=== PATIENT | male | born 1990 | race Caucasian/White ===

== ENCOUNTER → 2017-10-27 | Day surgery (SDC) | payer BC ==
[2017-10-17 07:33] VITALS: Ht 188 cm; Wt 84.1 kg
[~2017-10-27] VITALS: Ht 188 cm; Wt 84.1 kg
[~2017-10-27] MED LIST: PROPOFOL IV EMULSION 10 MG/ML 20 ML VIAL IV ONE; SODIUM CHLORIDE 0.9% 500ML 500 ML IV ONE
--- NOTE | 2017-10-27 15:00 | Endo History and Physical ---
History & Physical Date of Service: Oct 27, 2017. Chief Complaint: Abdominal cramping/bloating; diarrhea Referring Physician: Diogenes Mcqueen History of Present Illness 27 yo CM who presents for colonoscopy secondary to abdominal cramping and diarrhea. Past Surgical History Hx Cardiac Surgery: No Hx Internal Defibrillator: No Hx Pacemaker: No Hx Abdominal Surgery: No Hx of Implantable Prosthesis: No Hx Post-Op Nausea and Vomiting: No Hx Cancer Surgery: No Hx Thoracic Surgery: Yes (BRONCHOSCOPY/LUNG SURGERY (AT AGE 5)BENIGN) Hx Orthopedic: No Hx Urinary Tract Surgery: No Family History None Social History Smoking Status: Never Smoker Hx Substance Use: No Hx Alcohol Use: Yes (OCCASIONALLY) Allergies Coded Allergies: No Known Allergies (Unverified , 10/17/17) Current Medications Reported Home Medications Medications Dose Route/Sig Max Daily Dose Days Date Category No Active Prescriptions or Reported Medications Rx Vital Signs Weight (Kilograms): 84.09 Height (Feet): 6 Height (Inches): 2 Date Time Temp Pulse Resp B/P (MAP) Pulse Ox O2 Delivery O2 Flow Rate FiO2 10/27/17 14:38 36.8 80 18 121/72 (88) 97 Room Air Physical Exam General Appearance: WD/WN, no apparent distress Respiratory/Chest: Auscultation: breath sounds normal Cardiovascular: Heart Auscultation: RRR Abdomen: Bowel Sounds: normal Inspection & Palpation: soft, non-distended, no tenderness, guarding & rebound Assessment and Plan Assessment: 27 yo CM who presents for colonoscopy secondary to abdominal cramping and diarrhea. Plan: Proceed with colonoscopy.
--- NOTE | 2017-10-27 15:27 | GI REPORT ---
Procedure Date: 10/27/2017 2:39 PM Procedure: Colonoscopy Indications: Chronic diarrhea Medicines: Monitored Anesthesia Care Complications: No immediate complications. Estimated Blood Loss: Estimated blood loss: none. Procedure: Pre-Anesthesia Assessment: - Prior to the procedure, a History and Physical was performed, and patient medications and allergies were reviewed. The patient's tolerance of previous anesthesia was also reviewed. The risks and benefits of the procedure and the sedation options and risks were discussed with the patient. All questions were answered, and informed consent was obtained. Prior Anticoagulants: The patient has taken no previous anticoagulant or antiplatelet agents. ASA Grade Assessment: I - A normal, healthy patient. After reviewing the risks and benefits, the patient was deemed in satisfactory condition to undergo the procedure. After I obtained informed consent, the scope was passed under direct vision. Throughout the procedure, the patient's blood pressure, pulse, and oxygen saturations were monitored continuously. The scope was introduced through the anus and advanced to the terminal ileum. The colonoscopy was performed without difficulty. The patient tolerated the procedure well. The quality of the bowel preparation was good. The terminal ileum, ileocecal valve, appendiceal orifice, and rectum were photographed. Findings: The perianal and digital rectal examinations were normal. The colon (entire examined portion) appeared normal. Several random biopsies were obtained with cold forceps for histology in the entire colon. Impression: - The entire examined colon is normal. - Several random biopsies were obtained in the entire colon. Recommendation: - Resume previous diet. - Continue present medications. - Repeat colonoscopy for surveillance based on pathology results. - Return to primary care physician as previously scheduled. Sanford May DO 10/27/2017 3:27:35 PM This report has been signed electronically. Note Initiated On: 10/27/2017 2:39 PM I attest to the content of the Intraoperative Record and orders documented therein, exceptions below
--- NOTE | 2017-10-27 15:30 | Discharge Instructions ---
Endoscopy Patient Instructions Date / Procedure(s) Performed Oct 27, 2017. Colonoscopy Allergy Information Coded Allergies: No Known Allergies (Unverified , 10/17/17) Discharge Date / Findings Oct 27, 2017. Random colon biopsies Medication Instructions OK to resume all medications today as prescribed Reported Home Medications Medications Dose Route/Sig Max Daily Dose Days Date Category No Active Prescriptions or Reported Medications Rx Provider Instructions Activity Restrictions - No exercising or heavy lifting for 24 hours. - Do not drink alcohol the day of the procedure. - Do not drive a car or operate machinery until the day after the procedure. - Do not make any important decisions or sign important papers in 24 hours after the procedure. Following Day: - Return to full activity which may include returning to work/school. Diet Start your diet with liquids and light foods (jello, soup, juice, toast). Then eat your usual diet if not nauseated. Treatment For Common After Affects For mild abdominal pain, bloating, or excessive gas: - Rest - Eat lightly - Lie on right side Follow-Up Information Follow-up with Diogenes Mcqueen as scheduled Anesthesia Information What You Should Know You have had a procedure that required some medicine to reduce anxiety and discomfort. This treatment is called moderate sedation. After receiving the treatment, you may be sleepy, but you will be able to breathe on your own. The effects of the treatment may last for several hours. Follow these instructions along with Activity/Diet recommendations noted above: * Do NOT do anything where dizziness or clumsiness would be dangerous. * Rest quietly at home today, then you can be up and about tomorrow. * Have a responsible person stay with you the rest of today. * You may have had an I.V. today. If so, you may take the dressing off later today. Recommendations Call your doctor if: * Trouble breathing * Continuous vomiting for more than 24 hours * Temperature above 101 degrees * Severe abdominal pain or bloating * Pain not relieved by pain medicine ordered * There is increased drainage or redness from any incision * A large amount of rectal bleeding greater than 2-3 tablespoons. (If you had a polyp/s removed or have hemorrhoids, a small amount of blood - from the rectum is to be expected.) * You have any unanswered questions or concerns. IN THE EVENT OF A SERIOUS EMERGENCY, GO TO THE NEAREST EMERGENCY ROOM Your discharge instructions were prepared by provider Sanford May. Patient Instructions Signature Page Isidro Skelton Patient (or Guardian) Signature/Date: I have read and understand the instructions given to me by my caregivers. Caregiver/RN/Doctor Signature/Date: The above-named patient and/or guardian has received patient instructions on this date. + Original Patient Signature Page (only) stays with chart. Please make copy for patient.
--- NOTE | 2017-10-27 15:54 | Anesthesiology Progress Note ---
Anesthesia Post Op Note Date & Time Oct 27, 2017 at 15:54 Vital Signs Pain Intensity: 1 Vital Signs Past 12 Hours Date Time Temp Pulse Resp B/P (MAP) Pulse Ox O2 Delivery O2 Flow Rate FiO2 10/27/17 15:40 63 18 106/71 (83) 99 Room Air 10/27/17 15:25 67 18 108/57 (74) 96 Room Air 10/27/17 14:38 36.8 80 18 121/72 (88) 97 Room Air Notes Mental Status: alert / awake / arousable, participated in evaluation Pt Amnestic to Procedure: Yes Nausea / Vomiting: adequately controlled Pain: adequately controlled Airway Patency, RR, SpO2: stable & adequate BP & HR: stable & adequate Hydration State: stable & adequate Anesthetic Complications: no major complications apparent
[2017-10-27 15:58] VITALS: BP 105/61; PULSE 63; O2SAT 99
== END | disposition home or self-care (01) ==
LOC: C.GI 14:18
PROVIDERS: ATTEND Internal Medicine
DX: R10.9 Unspecified abdominal pain (principal); R14.0 Abdominal distension (gaseous); R19.7 Diarrhea, unspecified

== ENCOUNTER 2020-04-10 18:48 | Inpatient (IN) ==
[2020-04-10] MEDS ORDERED: SODIUM CHLORIDE 0.9% 1000ML 2,000 ML IV ONE (20:52)
[2020-04-10 21:11] LABS: Basophils # (auto) 0.02 K/uL (0-0.2); Basophils % (auto) 0.3 %; Eosinophils # (auto) 0.12 K/uL (0-0.5); Eosinophils % (auto) 1.9 %; Hematocrit (blood only) 41.7 % (42-52); Hemoglobin 15.3 g/dL (14.0-18.0); Immature Granulocytes # (auto) 0.01 K/uL (0.00-0.02); Immature Granulocytes % (auto) 0.2 %; Lymphocytes # (auto) 2.21 K/uL (1.2-3.4); Lymphocytes % (auto) 34.2 %; Mean Corpuscular Hemoglobin 32.2 pg (25-34); Mean Corpuscular Hgb Conc 36.7 g/dL (32-36); Mean Corpuscular Volume 87.8 fL (80-100); Mean Platelet Volume 9.2 fL (7.4-10.4); Monocytes # (auto) 0.48 K/uL (0.11-0.59); Monocytes % (auto) 7.4 %; Neutrophils # (auto) 3.63 K/uL (1.4-6.5); Platelet Count 205 K/uL (130-400); RDW Coefficient of Variation 11.8 % (11.5-14.5); RDW Standard Deviation 37.7 fL (36.4-46.3); Red Blood Count 4.75 M/uL (4.7-6.1); White Blood Count 6.47 K/uL (4.8-10.8)
[2020-04-10 21:20] LABS: iSTAT Creatinine 0.9 mg/dl (0.6-1.3); iSTAT Hemoglobin 13.9 g/dl (14.0-18.0); iSTAT Ionized Calcium 1.22 mmol/l (1.12-1.32); iSTAT Potassium 3.9 mmol/L (3.3-5.0)
[2020-04-10 21:31] LABS: Albumin Level 3.9 gm/dl (3.4-5.0); BUN Creatinine Ratio 13.8 (10-20); Calcium 9.2 mg/dl (8.5-10.1); Creatinine Clr Calc Pharmacy 120.7 ml/min; Est GFR (African American) 110.6; Est GFR (Non-African American) 95.5; Potassium 3.9 mmol/L (3.5-5.1)
[2020-04-10 21:57] LABS: Albumin Globulin Ratio 1.3 (0.9-2); Bilirubin,Total 0.3 mg/dl (0.2-1); Globulin 3.1 gm/dl (2.5-4.0)
--- NOTE | 2020-04-10 23:03 | History & Physical Report ---
Date of Service April 10, 2020 Assessment & Plan (1) Lyme disease, acute: Patient was initially treated with 4 weeks of doxycycline beginning 02/10/2020. With persistent symptoms, he was given additional treatment course of doxycycline that was to begin today. Patient reports that repeat Lyme testing was ordered in the outpatient setting Testing is also being sent this evening for anaplasmosis, and ehrlichiosis. Continue doxycycline 100 mg p.o. twice daily. Present on Admission?: Yes (2) Exertional rhabdomyolysis: Follow serial CK levels, BMP and magnesium levels Creatinine is in normal range. Continue aggressive fluid rehydration with IV fluids. Present on Admission?: Yes (3) Abnormal LFTs: Differential includes but not limited to: Anaplasmosis, acute hepatitis, and hemochromatosis (patient has family history hemochromatosis) We will follow serial LFTs. We will order anaplasmosis testing and acute hepatitis panel. Order PT/INR. Order ferritin levels. Present on Admission?: Yes History of Present Illness Chief Complaint: The patient presented to the emergency department due to worsening symptoms of chest wall pains, generalized body pains, and in particular bilateral calf tenderness. Primary Care Provider: Diogenes Mcqueen MD The patient is a 29-year-old male who was initially diagnosed with Lyme disease on 02/10/2020, and completed 4 weeks of doxycycline. His symptoms have begun to worsen after a few days period of exercise. Today, when he called his outpatient PCPs office, he was given a follow-up prescription for doxycycline, and advised to follow-up if his symptoms were to worsen, which he has this evening. He denies any recent travels or sick exposures, including to [place]. Laboratories performed earlier in the day, revealed an AST of 584, which tonight is worsened 893, ALT of 123, which time is worse to 188, and total CK of 34,897 which has worsened to 46,036 this evening. Allergies Allergy/AdvReac Type Severity Reaction Status Date / Time No Known Allergies Allergy Mild Verified 04/10/20 21:45 Home Medications Home Medications Medication Instructions Recorded Confirmed Type Protein Shake 1 dose PO UD 04/10/20 04/10/20 History doxycycline hyclate 100 mg tablet 100 mg PO BID #56 tab 04/10/20 04/10/20 Rx Past Med/Surg History Medical History (Updated 04/11/20 @ 03:12 by Bijan Jean MD) BMI 25.0-25.9,adult Solitary pulmonary nodule HX OF WHEN 5 YRS OLD NOT CURRENT Surgical History H/O excision of mass (02/23/19) Left Lower Leg Excision of Soft Tissue Mass, 3 cm x [address] 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 [employer]itter Required: No Beliefs That Will Affect Care: None marital status: Current Living Situation: Spouse current occupational status: employed current occupation: [employer] Feels Safe at Home: Yes Childhood Exposure to Second-Hand Smoke: No caffeine: Yes Dental Care, Regularly: Yes Physical Activity Frequency: 5-6 Times per Week Seatbelt Use: always Sunscreen Use: Yes Assistive Devices: None Review of Systems Review of Systems: The patient denies palpitations, lower extremity swelling, sore throat, fevers, chills, sweats, weight change, fatigue, nausea, vomiting, diarrhea , constipation, abdominal pain, pelvic pain, blood in urine or stool, dysuria, urinary frequency or urgency, lightheadedness, dizziness, headache, memory loss, loss of consciousness, rash, abnormal bruising or bleeding, imbalance, focal or generalized weakness, numbness or tingling in arms or legs, neck pain, or night sweats. The review of systems is otherwise negative other than for that already noted above, and at least 10 systems have been reviewed. Physical Exam Physical Exam: The patient is awake, alert and oriented 3, well developed and well nourished, normocephalic and atraumatic, lying in bed and in no acute distress. HEENT--PERRL, EOMI, mucous membranes and oropharynx normal. Neck--supple. No JVD. No bruits. Thyroid normal, trachea midline, no adenopathy. Heart--normal S1 and S2. No murmurs, rubs or gallops. Lungs--clear bilaterally, no respiratory distress, no accessory muscle use. Abdomen--normal bowel sounds and soft. Nontender. Nondistended, no hernias or masses, no organomegaly. Extremities--no cyanosis or clubbing. No edema. Dermatologic--normal skin turgor, normal color, no abnormal lymph nodes, no rash. Neurologic--cranial nerves II through XII grossly intact. Rheumatologic--normal range of motion. Psychiatric--normal affect. Results & Data Results & Data ([facility]) Vital Signs (Past 12 Hours) Vital Signs Temp Pulse Pulse Resp BP BP Pulse Ox 04/10/20 21:16 80 16 125/79 98 04/10/20 19:15 98.8 F 74 20 143/86 H 95 Laboratory Results Laboratory Results WBC 6.47 K/uL (4.8-10.8) 04/10/20 21:03 RBC 4.75 M/uL (4.7-6.1) 04/10/20 21:03 Hgb 15.3 g/dL (14.0-18.0) 04/10/20 21:03 POC Hgb 13.9 g/dl (14.0-18.0) L 04/10/20 21:08 Hct 41.7 % (42-52) L 04/10/20 21:03 POC Hct 41 % (42-52) L 04/10/20 21:08 MCV 87.8 fL (80-100) 04/10/20 21:03 MCH 32.2 pg (25-34) 04/10/20 21:03 MCHC 36.7 g/dL (32-36) H 04/10/20 21:03 RDW Std Deviation 37.7 fL (36.4-46.3) 04/10/20 21:03 RDW Coeff of Viki 11.8 % (11.5-14.5) 04/10/20 21: Plt Count 205 K/uL (130-400) 04/10/20 21: MPV 9.2 fL (7.4-10.4) 04/10/20 21:03 Immature Gran % (Auto) 0.2 % 04/10/20 21:03 Neut % (Auto) 56.0 % 04/10/20 21:03 Lymph % (Auto) 34.2 % 04/10/20 21:03 Mason % (Auto) 7.4 % 04/10/20 21:03 Eos % (Auto) 1.9 % 04/10/20 21:03 Baso % (Auto) 0.3 % 04/10/20 21:03 Neut # (Auto) 3.63 K/uL (1.4-6.5) 04/10/20 21:03 Lymph # (Auto) 2.21 K/uL (1.2-3.4) 04/10/20 21:03 Mason # (Auto) 0.48 K/uL (0.11-0.59) 04/10/20 21:03 Eos # (Auto) 0.12 K/uL (0-0.5) 04/10/20 21:03 Baso # (Auto) 0.02 K/uL (0-0.2) 04/10/20 21:03 Immature Gran # (Auto) 0.01 K/uL (0.00-0.02) 04/10/20 21:03 APTT 27.6 Seconds (21.0-31.0) 04/10/20 23:41 PTT Ratio 1.0 04/10/20 23:41 POC Sodium 140 mmol/L (135-144) 04/10/20 21:08 Sodium 140 mmol/L (136-145) 04/10/20 21:03 POC Potassium 3.9 mmol/L (3.3-5.0) 04/10/20 21:08 Potassium 3.9 mmol/L (3.5-5.1) 04/10/20 21:03 POC Chloride 102 mmol/L (101-112) 04/10/20 21:08 Chloride 107 mmol/L (98-107) 04/10/20 21:03 Carbon Dioxide 27 mmol/L (21-32) 04/10/20 21:03 POC Total CO2 25 mmol/L (24-31) 04/10/20 21:08 Anion Gap 6.0 (3-11) 04/10/20 21:03 POC Anion Gap 18.0 mmol/L (16-25) 04/10/20 21:08 POC BUN 15 mg/dl (7-18) 04/10/20 21:08 BUN 15 mg/dl (7-18) 04/10/20 21:03 Creatinine 1.05 mg/dl (0.6-1.4) 04/10/20 21:03 POC Creatinine 0.9 mg/dl (0.6-1.3) 04/10/20 21:08 Est Cr Clr Drug Dosing 120.7 ml/min 04/10/20 21:03 Est GFR ( Amer) 110.6 04/10/20 21:03 Est GFR (Non-Af Amer) 95.5 04/10/20 21:03 BUN/Creatinine Ratio 13.8 (10-20) 04/10/20 21:03 Glucose 101 mg/dl (70-99) H 04/10/20 21:03 POC Glucose (other) 101 mg/dl (70-99) H 04/10/20 21:08 Calcium 9.2 mg/dl (8.5-10.1) 04/10/20 21:03 POC Ioniz Calcium Michelle 1.22 mmol/l (1.12-1.32) 04/10/20 21:08 Ferritin 200.2 ng/ml (8-388) 04/10/20 21:03 Total Bilirubin 0.3 mg/dl (0.2-1) 04/10/20 21:03 AST 893 U/L (15-37) H 04/10/20 21:03 ALT 188 U/L (12-78) H 04/10/20 21:03 Alkaline Phosphatase 65 U/L (45-117) 04/10/20 21:03 Total Creatine Kinase 44406 U/L (39-308) H 04/10/20 21:03 Total Protein 7.0 gm/dl (6.4-8.2) 04/10/20 21:03 Albumin 3.9 gm/dl (3.4-5.0) 04/10/20 21:03 Globulin 3.1 gm/dl (2.5-4.0) 04/10/20 21:03 Albumin/Globulin Ratio 1.3 (0.9-2) 04/10/20 21:03 Lipase 126 U/L (73-393) 04/10/20 21:03 Anaplasma Smear See Comment 04/10/20 21:03 Hep Bs Antigen Neg (Neg) 04/10/20 23:41 Hepatitis C Antibody Neg (Neg) 04/10/20 23:41 Code Status & VTE Plan Code Status Full code VTE Prophylaxis Plan VTE Prophylaxis will be ordered: Yes PG Care Time/CCT Total # of Minutes Spent Total Time Spent with Patient: Total time spent is greater than 50% in coordination of care (as documented) at patient's floor/unit and/or counseling patient: Coding Level of Care Code 38478 Initial Inpt Care Lvl 2 Diagnoses Lyme disease, acute A69.20 Exertional rhabdomyolysis M62.82 Abnormal LFTs R94.5
[2020-04-10 23:41] LABS: Ferritin 200.2 ng/ml (8-388)
[2020-04-11 00:15] LABS: Partial Thromboplastin Time 27.6 Seconds (21.0-31.0)
[2020-04-11] MEDS ORDERED: ALUMINUM/MAGNESIUM SUSP 30 ML UDC PO PRN (00:27)
[2020-04-11] MEDS ORDERED: ONDANSETRON INJ 2 MG/ML 2 ML VIAL IV PRN (00:27)
[2020-04-11] MEDS ORDERED: MAGNESIUM HYDROXIDE SUSP 30 ML UDC PO PRN (00:27)
[2020-04-11] MEDS: NSS + 20MEQ KCL 20 MEQ/1,000 ML BAG IV SCH ×6 (00:47→20:42)
[2020-04-11 00:48] LABS: Hepatitis B Surface Antigen Neg (Neg)
[2020-04-11 01:16] LABS: Hepatitis C IgG 13Yrs+Old_Rflx Neg (Neg)
[2020-04-11] MEDS: DOXYCYCLINE HYCLATE 100 MG CAP PO SCH ×3 (01:59→20:44)
[2020-04-11 03:32] LABS: Appearance Urine Clear (Clear); Bacteria Urine Automated Negative (Negative); Bilirubin Urine Negative (Negative); Blood Urine 2+ (Negative); Cast Urine Automated 0 /lpf (0-5); Color Urine Yellow; Epithelial Cell Urine Auto 0-5 /lpf (0-5); Glucose Urine UA Negative (Negative); Ketones Urine Negative (Negative); Leukocyte Esterase Urine Negative (Negative); Nitrite Urine Negative (Negative); Protein Urine Negative (Negative); RBC Urine Automated 0-4 /hpf (0-4); Specific Gravity Urine 1.011 (1.000-1.030); Urobilinogen Urine Negative (Negative); WBC Urine Automated 0 /hpf (0-5); pH Urine 5.5 (4.5-7.5)
--- NOTE | 2020-04-11 04:05 | Emergency Department Note ---
History of Present Illness General Chief complaint: Abnormal Labs/Diagnostic Testing Stated complaint: ABNORMAL LABS Source: patient, family, RN notes reviewed and old records reviewed Mode of arrival: ambulatory Limitations: no limitations History of Present Illness Provider complaint: elevated CK, muscle pain Onset (ago): day(s) 2 Location: chest, lower extremity, left and right Radiation: non-radiation Severity: moderate Pain Consistency: + intermittent Maximum Pain Intensity: 9 Current Pain Intensity: 9 Quality: + aching Relieved By: + movement Exacerbated By: + immobilization Associated symptoms: + denies other symptoms; no chest pain and no fever/chills Treatments prior to arrival: other (doxycycline) This is a 29-year-old male who presents emergency department complaining of muscle pain bilaterally to the legs as well as his chest. The patient reports he was lifting weights on Tuesday when he began having worse than normal muscular pain to his chest. In addition the patient was also running on Tuesday and noticed he began developing severe pain to his upper calf area. The patient was recently started on doxycycline for a Lyme flare. He reports he does take a protein shake for lifting. He describes the pain as a burning sensation. Home Medications Home Medications Medication Instructions Recorded Confirmed Type Protein Shake 1 dose PO UD 04/10/20 04/10/20 History doxycycline hyclate 100 mg tablet 100 mg PO BID #56 tab 04/10/20 04/10/20 Rx Allergies Allergy/AdvReac Type Severity Reaction Status Date / Time No Known Allergies Allergy Mild Verified 04/10/20 21:45 Past Med/Surg History Medical History BMI 25.0-25.9,adult Solitary pulmonary nodule HX OF WHEN 5 YRS OLD NOT CURRENT Surgical History H/O excision of mass (02/23/19) Left Lower Leg Excision of Soft Tissue Mass, 3 cm x [address] Davis 02-23-19 History of tooth extraction Hx of LASIK Family History Grandfather Alcohol abuse Cancer Diabetes Grandmother Diabetes Unknown Bipolar disorder Myocardial infarction Father Diabetes Hemochromatosis Social History Smoking Status: Never smoker Second Hand Exposure: No; Do You Dip or Chew Tobacco: No; Hx Alcohol Use: Yes Alcohol type: beer, wine and hard liquor Hx Substance Use: No Preferred Language: French Communication Ability: Effective Visual Impairment: No Limitations Hearing Ability: Normal Crisis Intervention Counselor Required: No Beliefs That Will Affect Care: None marital status: Current Living Situation: Spouse current occupational status: employed current occupation: [employer] Feels Safe at Home: Yes Childhood Exposure to Second-Hand Smoke: No caffeine: Yes Dental Care, Regularly: Yes Physical Activity Frequency: 5-6 Times per Week Seatbelt Use: always Sunscreen Use: Yes Assistive Devices: None Review of Systems A total of 10 systems reviewed and were otherwise negative Physical Exam Vital Signs Vital Signs - 24 hr 04/10/20 19:15 04/10/20 21:16 Temperature 37.1 C Temperature Source Oral Pulse Rate 74 Pulse Rate [Apical] 80 Respiratory Rate 20 16 Respiratory Effort / Characteristics Non-Labored Spontaneous Respiratory Depth Normal Respiratory Pattern Regular Blood Pressure 143/86 H Blood Pressure [Left Arm] 125/79 Blood Pressure Mean 105 Blood Pressure Mean [Left Arm] 94 Pulse Oximetry 95 98 Oxygen Delivery Method Room Air Room Air Sepsis Recent Fever Within 48 Hours No Sepsis New/Unexplained Change in Mental Status N/A Sepsis Action Taken by Nursing No Action Required VITAL SIGNS - Vital signs and nursing notes were reviewed. GENERAL - 29-year-old male appearing stated age who is in no acute distress. Communicates well with provider and answers questions appropriately. SKIN - Without rashes. HEAD - NC/AT. EYES - PERRL with EOMI bilaterally. Sclera anicteric. Palpebral conjunctiva pink and moist with no injection noted. EARS - No deformities of external structures noted on gross examination bilaterally. No pain elicited with palpation of the tragus bilaterally. External auditory canals without discharge or otorrhea. Tympanic membranes pearly javed without retraction or bulging. No fluid or purulent material visualized behind the TM. Handle of malleus, umbo, cone of light, pars tensa/flaccid all easily visualized. NOSE - Midline and without cyanosis. No epistaxis or purulent drainage noted. Septum midline without deviation or septal hematoma noted. MOUTH/OROPHARYNX - Without perioral cyanosis. Buccal mucosa pink and moist and without leukoplakia. Tongue midline with equal elevation of palate bilaterally. No tonsillar hypertrophy, erythema, or exudates noted. dentition noted. NECK - Neck with FROM. Supple to palpation. lymphadenopathy noted. No nuchal rigidity. LUNGS - Chest wall symmetric without accessory muscle use, intercostals retractions, or central cyanosis. Normal vesicular breath sounds CTA B/L. No wheezes, rales, or rhonchi appreciated. CARDIAC - RRR with S1/S2. No murmur, rubs, or gallops appreciated. ABDOMEN - Abdominal contour without pulsations or visible masses. BS normoactive all four quadrants. No tenderness, palpable masses, hepatosplenomegaly, or ascites noted. EXTREMITIES - No clubbing or peripheral cyanosis. No pretibial edema present. +3/5 radial, posterior tibial, and dorsalis pedis pulses palpated throughout. +5/5 strength noted in UE/LE bilaterally. NEUROLOGIC - Cranial nerves II through XII grossly intact. Sensory intact to light touch throughout. Patellar reflexes +2/4. PSYCH - A&Ox3 and cooperates fully with examiner. Pt is very pleasant and interacts well with examiner. Course Administered Medications Doxycycline Hyclate (Doxycycline Hyclate 100 Mg Cap) 100 mg PO BID FATOU Stop: 04/21/20 01:14 Last Admin: 04/11/20 01:59 Dose: 100 mg Documented by: [id number] Potassium Chloride/Sodium Chloride (Normal Saline W/20 Meq Kcl) 20 meq in 1,000 mls @ 250 mls/hr IV .Q4H FATOU Stop: 05/11/20 00:26 Last Admin: 04/11/20 00:47 Dose: 250 mls/hr Documented by: [id number] Discontinued Medications Sodium Chloride (Nss 1000ml) 2,000 mls @ 999 mls/hr IV .Q2H1M ONE Stop: 04/10/20 22:52 Last Infusion: 04/10/20 23:25 Dose: 0 mls/hr Documented by: [id number] Admin: 04/10/20 21:20 Dose: 999 mls/hr Documented by: [id number] Medical Decision Making Differential Diagnosis Infection, dehydration, metabolic abnormality, hypo/hyperglycemia, electrolyte disturbance, anemia, hypoxia, cardiac sources, intracerebral event, toxicologic, neurologic, as well as other pathologies. Medical Records Attestation: I reviewed the patient's medical records. Home Medications Current Medication List: was personally reviewed by me Laboratory Data Attestation: I reviewed the patient's lab results. Result diagrams: 04/10/20 21:03 04/10/20 21:03 Lab Results 04/10/20 04/10/20 04/10/20 Range/Units 21:03 21:03 21:08 WBC 6.47 (4.8-10.8) K/uL RBC 4.75 (4.7-6.1) M/uL Hgb 15.3 (14.0-18.0) g/dL POC Hgb 13.9 L (14.0-18.0) g/dl Hct 41.7 L (42-52) % POC Hct 41 L (42-52) % MCV 87.8 (80-100) fL MCH 32.2 (25-34) pg MCHC 36.7 H (32-36) g/dL RDW Std Deviation 37.7 (36.4-46.3) fL RDW Coeff of Viki 11.8 (11.5-14.5) % Plt Count 205 (130-400) K/uL MPV 9.2 (7.4-10.4) fL Immature Gran % (Auto) 0.2 % Neut % (Auto) 56.0 % Lymph % (Auto) 34.2 % [place] % (Auto) 7.4 % Eos % (Auto) 1.9 % Baso % (Auto) 0.3 % Neut # (Auto) 3.63 (1.4-6.5) K/uL Lymph # (Auto) 2.21 (1.2-3.4) K/uL [place] # (Auto) 0.48 (0.11-0.59) K/uL Eos # (Auto) 0.12 (0-0.5) K/uL Baso # (Auto) 0.02 (0-0.2) K/uL Immature Gran # (Auto) 0.01 (0.00-0.02) K/uL POC Sodium 140 (135-144) mmol/L Sodium 140 (136-145) mmol/L POC Potassium 3.9 (3.3-5.0) mmol/L Potassium 3.9 (3.5-5.1) mmol/L POC Chloride 102 (101-112) mmol/L Chloride 107 (98-107) mmol/L Carbon Dioxide 27 (21-32) mmol/L POC Total CO2 25 (24-31) mmol/L Anion Gap 6.0 (3-11) POC Anion Gap 18.0 (16-25) mmol/L POC BUN 15 (7-18) mg/dl BUN 15 (7-18) mg/dl Creatinine 1.05 (0.6-1.4) mg/dl POC Creatinine 0.9 (0.6-1.3) mg/dl Est Cr Clr Drug Dosing 120.7 ml/min Est GFR ( Amer) 110.6 Est GFR (Non-Af Amer) 95.5 BUN/Creatinine Ratio 13.8 (10-20) Glucose 101 H (70-99) mg/dl POC Glucose (other) 101 H (70-99) mg/dl Calcium 9.2 (8.5-10.1) mg/dl POC Ioniz Calcium Michelle 1.22 (1.12-1.32) mmol/l Ferritin 200.2 (8-388) ng/ml Total Bilirubin 0.3 (0.2-1) mg/dl AST 893 H (15-37) U/L ALT 188 H (12-78) U/L Alkaline Phosphatase 65 (45-117) U/L Total Creatine Kinase 41448 H (39-308) U/L Total Protein 7.0 (6.4-8.2) gm/dl Albumin 3.9 (3.4-5.0) gm/dl Globulin 3.1 (2.5-4.0) gm/dl Albumin/Globulin Ratio 1.3 (0.9-2) Lipase 126 (73-393) U/L Anaplasma Smear See Comment MDM Narrative This is a 29-year-old male sent in by his primary care physician over concerns that the patient has a grossly elevated CK. The patient was given a normal saline bolus here in the emergency department x2. I did discuss the case with the hospitalist service who did agree to admit the patient. Patient was seen and evaluated as above in room A3. Review was performed of nu rsing notes and vital signs. I did review pertinent previous visits and patient history. After obtaining a thorough history and physical examination the above work up was performed. The patient was evaluated during the global COVID-19 pandemic, and that diagnosis was suspected/considered upon their initial presentation. Their evaluation, treatment and testing was consistent with current guidelines for patients who present with complaints or symptoms that may be related to COVID- 19. Impression & Plan Exertional rhabdomyolysis, Abnormal LFTs Discharge Plan Visit Data Chief Complaint: Abnormal Labs/Diagnostic Testing Stated Complaint: ABNORMAL LABS ED Provider: Stuart Mcconnell Discharge Problem: Exertional rhabdomyolysis, Abnormal LFTs Patient Disposition: Admitted As Inpatient Discharge Instructions Interventions: ED Discharge Assessment Last Done: 04/10/20 23:45
[2020-04-11 06:12] LABS: Basophils # (auto) 0.02 K/uL (0-0.2); Basophils % (auto) 0.4 %; Eosinophils # (auto) 0.11 K/uL (0-0.5); Eosinophils % (auto) 2.1 %; Hematocrit (blood only) 37.6 % (42-52); Hemoglobin 13.4 g/dL (14.0-18.0); Lymphocytes # (auto) 2.29 K/uL (1.2-3.4); Lymphocytes % (auto) 43.2 %; Mean Corpuscular Hemoglobin 31.5 pg (25-34); Mean Corpuscular Hgb Conc 35.6 g/dL (32-36); Mean Corpuscular Volume 88.5 fL (80-100); Mean Platelet Volume 9.3 fL (7.4-10.4); Monocytes # (auto) 0.46 K/uL (0.11-0.59); Monocytes % (auto) 8.7 %; Neutrophils # (auto) 2.42 K/uL (1.4-6.5); Neutrophils % (auto) 45.6 %; Platelet Count 186 K/uL (130-400); RDW Coefficient of Variation 12.1 % (11.5-14.5); RDW Standard Deviation 38.6 fL (36.4-46.3); Red Blood Count 4.25 M/uL (4.7-6.1)
[2020-04-11 06:45] LABS: Albumin Level 3.2 gm/dl (3.4-5.0); BUN Creatinine Ratio 11.8 (10-20); Calcium 8.1 mg/dl (8.5-10.1); Creatinine Clr Calc Pharmacy 139.3 ml/min; Est GFR (African American) 131.5; Est GFR (Non-African American) 113.5; Potassium 4.4 mmol/L (3.5-5.1)
[2020-04-11 07:12] LABS: Albumin Globulin Ratio 1.2 (0.9-2); Bilirubin,Total 0.3 mg/dl (0.2-1); Globulin 2.7 gm/dl (2.5-4.0); Total Protein 5.9 gm/dl (6.4-8.2)
--- NOTE | 2020-04-11 15:18 | Ultrasound Report ---
Biliary ultrasound CLINICAL HISTORY: acute hepatitis COMPARISON STUDY: 04/05/2016 FINDINGS: No focal hepatic masses are visualized. The gallbladder appears sonographically normal. There is no ductal dilatation. The common bile duct measures 3 mm. There is no right-sided hydronephrosis. The pancreas was largely obscured. IMPRESSION: 1. Suboptimal visualization of pancreas 2. Otherwise normal biliary ultrasound. No hepatic masses identified. No ductal dilatation. ACT 112: Negative or not required by law. Electronically signed by: Zach Morris M.D. 04/11/2020 3:17 PM
--- NOTE | 2020-04-11 20:55 | Hospitalist Progress Note ---
Date of Service April 11, 2020 Assessment & Plan (1) Rhabdomyolysis: Patient with 2 heavy work-outs this week on Tuesday and Tuesday. Significant upper and lower body myalgias began on Tuesday. This is the likely cause of the acute rhabdomyolysis. He expressed considerable concern that recurrent lyme disease is contributing to the rhabdomyolysis. I am not aware that Lyme can cause rhabdomyolysis but anaplasmosis may cause such. Anaplasmosis and ehrlichiosis PCR have been dispatched. Viral infections are more common and thus, given his abnormal LFTs, will check monospot / EBV ab's and CMV ab's. Also check COVID-19 as it is known that coronavirus can cause rhabdo. Could consider flu testing but doubt such (no fever or other flu symptoms). Continue IVF with repeat CPK in am. Can cut rate to 200cc/hr. (2) Abnormal LFTs: Some of the elevation may be from the rhabdomyolysis itself. Cannot rule out concomitant viral or tickborne infection. Thus, anaplasmosis PCR has been sent (smear was neg). Also check monospot with reflex to EBV, CMV and COVID-19. Liver/GB u/s wnl. HepB, HepC negative; HepA pending but doubt he has such. His father has hemochromatosis and patient had a genetic w/u for such 2 years ago. Has 1 gene according to our records. Ferritin level checked this admission and wnl. The LFT abnormalities are acute appearing and thus doubt iron overload. Repeat LFTs in am. Avoid tylenol. Patient denies any excessive tylenol or alcohol prior to admission. Check INR in am. (3) Family history of hemochromatosis: see above (4) History of Lyme disease: early stage Lyme dx in January 2020. treated with 4 weeks of doxycycline. see above discussion re: recurrent tick-borne infection. by report he has a repeat lyme test pending that was done as outpatient but I cannot find that in the record. will need to discuss that tomorrow. Anaplasmosis and Ehrlichia PCR pending; continue empiric doxycycline 100mg BID. (5) Fatigue: Patient reports several weeks of fatigue leading up to this admission. CBC is wnl. CRP is 0. TSH is normal. Check B12 level in am. 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 If the antibody is positive this could suggest past infection that is contributing to fatigue. Await repeat Lyme and other tick-borne tests. I cannot rule out a primary myositis but doubt such as he denies proximal muscle weakness on chronic basis. extensively updated at bedside; questions answered. Admission and Anticipated Discharge Date Admission Date: April 10, 2020 Subjective patient reports mild myalgias of upper chest - particularly the lateral pectoralis muscle regions - as well as the calves. he otherwise denies fevers, chills, cough, congestion, sore throat, abdominal pain, nausea, emesis, weight loss. he has had good appetite. patient reports that he worked out heavily on Tuesday and Tuesday. Tuesday did a chest work-out, then Tuesday did a leg work-out. He also did aerobic activity during that time period. Tuesday - myalgias developed. Prior to this past weekend patient states he has had considerable fatigue. This has been present for a few weeks but getting worse. This is unusual for him. The fatigue coupled with the myalgias made him concerned about recurrent Lyme disease. records reviewed -- had +Lyme screen on 01/19/2020. Western blot returned several days later with IgM bands x 3 all positive. Received 1 month of doxycycline for such. by report had early Lyme rash as well confirming early stage lyme disease. he was compliant with entire course. 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 close contact with numerous people in the public. but no children. no obvious sick contacts. Review of Systems Constitutional: + body aches and + fatigue; no fever, no chills, no anorexia and no weight loss Ear, Nose, Mouth, Throat: no ear pain, no nasal congestion and no sore throat Respiratory: no cough, no dyspnea and no dyspnea on exertion Cardiovascular: as per Subjective / HPI; no edema Gastrointestinal: no abdominal pain, no nausea, no vomiting and no diarrhea/loose stools Musculoskeletal: + myalgia and + body aches; no joint pain and no swelling Integumentary: no rash Physical Exam Constitutional: well developed and well nourished; no acute distress and no altered mental status ENMT: external ear and nose normal, oropharynx normal Neck: Thyroid: no thyromegaly Respiratory: normal respiratory effort, lungs clear to auscultation Cardiovascular: Rate/Rhythm: regular rate and regular rhythm Heart Sounds: normal S1 and normal S2; no murmur Vessels: posterior tibial pulses present and dorsalis pedis pulses present; no JVD Extremities: no edema Gastrointestinal (Abdomen): normal bowel sounds, soft, nontender, no hepatosplenomegaly (spleen tip palpable ) Musculoskeletal: no cyanosis or clubbing, extremities motor strength 5/5 Skin: no rashes, warm and dry Lymphatic: no cervical lymphadenopathy and no axillary lymphadenopathy Results & Data Results & Data ([facility]) Vital Signs (Past 12 Hours) Vital Signs Temp Pulse Resp BP BP Pulse Ox 04/11/20 19:46 36.9 C 60 18 122/75 99 04/11/20 15:16 36.8 C 61 18 117/82 99 04/11/20 11:55 36.7 C 73 18 136/76 97 Laboratory Results Laboratory Results - last 24 hr 04/10/20 04/10/20 04/10/20 21:03 21:03 21:08 WBC 6.47 RBC 4.75 Hgb 15.3 POC Hgb 13.9 L Hct 41.7 L POC Hct 41 L MCV 87.8 MCH 32.2 MCHC 36.7 H RDW Std Deviation 37.7 RDW Coeff of Viki 11.8 Plt Count 205 MPV 9.2 Immature Gran % (Auto) 0.2 Neut % (Auto) 56.0 Lymph % (Auto) 34.2 Kemper % (Auto) 7.4 Eos % (Auto) 1.9 Baso % (Auto) 0.3 Neut # (Auto) 3.63 Lymph # (Auto) 2.21 Kemper # (Auto) 0.48 Eos # (Auto) 0.12 Baso # (Auto) 0.02 Immature Gran # (Auto) 0.01 APTT PTT Ratio POC Sodium 140 Sodium 140 POC Potassium 3.9 Potassium 3.9 POC Chloride 102 Chloride 107 Carbon Dioxide 27 POC Total CO2 25 Anion Gap 6.0 POC Anion Gap 18.0 POC BUN 15 BUN 15 Creatinine 1.05 POC Creatinine 0.9 Est Cr Clr Drug Dosing 120.7 Est GFR ( Amer) 110.6 Est GFR (Non-Af Amer) 95.5 BUN/Creatinine Ratio 13.8 Glucose 101 H POC Glucose (other) 101 H Calcium 9.2 POC Ioniz Calcium Michelle 1.22 Ferritin 200.2 Total Bilirubin 0.3 AST 893 H ALT 188 H Alkaline Phosphatase 65 Total Creatine Kinase 10875 H C-Reactive Protein Total Protein 7.0 Albumin 3.9 Globulin 3.1 Albumin/Globulin Ratio 1.3 Lipase 126 Urine Color Urine Appearance Urine pH Ur Specific Star Urine Protein Urine Glucose (UA) Urine Ketones Urine Blood Urine Nitrite Urine Bilirubin Urine Urobilinogen Ur Leukocyte Esterase Urine WBC (Auto) Urine RBC (Auto) U Hyaline Cast (Auto) U Epithel Cells (Auto) Urine Bacteria (Auto) Anaplasma Smear See Comment A. phagocytophilum DNA COVID-19 Eval Order COVID-19 PCR CMV IgM Ab CMV IgG Ab/TORCH E. chaffeensis IgG Ab E. chaffeensis IgM Ab E. chaffeensis Interp E. chaffeensis Comment EBV Capsid Ag IgG Ab EBV Capsid Ag IgM Ab EBV EA Restrict+Diffuse EBV Nuclear Antigen Ab EBV Antibody Interp Hepatitis A IgM Ab Hep Bs Antigen Hep B Core IgM Ab Hepatitis C Antibody Monoscreen 04/10/20 04/10/20 04/10/20 23:41 23:41 23:41 WBC RBC Hgb POC Hgb Hct POC Hct MCV MCH MCHC RDW Std Deviation RDW Coeff of Viki Plt Count MPV Immature Gran % (Auto) Neut % (Auto) Lymph % (Auto) Kemper % (Auto) Eos % (Auto) Baso % (Auto) Neut # (Auto) Lymph # (Auto) Kemper # (Auto) Eos # (Auto) Baso # (Auto) Immature Gran # (Auto) APTT PTT Ratio POC Sodium Sodium POC Potassium Potassium POC Chloride Chloride Carbon Dioxide POC Total CO2 Anion Gap POC Anion Gap POC BUN BUN Creatinine POC Creatinine Est Cr Clr Drug Dosing Est GFR ( Amer) Est GFR (Non-Af Amer) BUN/Creatinine Ratio Glucose POC Glucose (other) Calcium POC Ioniz Calcium Michelle Ferritin Total Bilirubin AST ALT Alkaline Phosphatase Total Creatine Kinase C-Reactive Protein Total Protein Albumin Globulin Albumin/Globulin Ratio Lipase Urine Color Urine Appearance Urine pH Ur Specific Star Urine Protein Urine Glucose (UA) Urine Ketones Urine Blood Urine Nitrite Urine Bilirubin Urine Urobilinogen Ur Leukocyte Esterase Urine WBC (Auto) Urine RBC (Auto) U Hyaline Cast (Auto) U Epithel Cells (Auto) Urine Bacteria (Auto) Anaplasma Smear A. phagocytophilum DNA Pending COVID-19 Eval Order COVID-19 PCR CMV IgM Ab CMV IgG Ab/TORCH E. chaffeensis IgG Ab Pending E. chaffeensis IgM Ab Pending E. chaffeensis Interp Pending E. chaffeensis Comment Pending EBV Capsid Ag IgG Ab EBV Capsid Ag IgM Ab EBV EA Restrict+Diffuse EBV Nuclear Antigen Ab EBV Antibody Interp Hepatitis A IgM Ab Pending Hep Bs Antigen Neg Hep B Core IgM Ab Pending Hepatitis C Antibody Neg Monoscreen 04/10/20 04/11/20 04/11/20 23:41 05:45 05:45 WBC 5.30 RBC 4.25 L Hgb 13.4 L POC Hgb Hct 37.6 L POC Hct MCV 88.5 MCH 31.5 MCHC 35.6 RDW Std Deviation 38.6 RDW Coeff of Viki 12.1 Plt Count 186 MPV 9.3 Immature Gran % (Auto) 0.0 Neut % (Auto) 45.6 Lymph % (Auto) 43.2 Kemper % (Auto) 8.7 Eos % (Auto) 2.1 Baso % (Auto) 0.4 Neut # (Auto) 2.42 Lymph # (Auto) 2.29 Kemper # (Auto) 0.46 Eos # (Auto) 0.11 Baso # (Auto) 0.02 Immature Gran # (Auto) 0.00 APTT 27.6 PTT Ratio 1.0 POC Sodium Sodium 144 POC Potassium Potassium 4.4 POC Chloride Chloride 112 H Carbon Dioxide 29 POC Total CO2 Anion Gap 3.0 POC Anion Gap POC BUN BUN 11 Creatinine 0.91 POC Creatinine Est Cr Clr Drug Dosing 139.3 Est GFR ( Amer) 131.5 Est GFR (Non-Af Amer) 113.5 BUN/Creatinine Ratio 11.8 Glucose 90 POC Glucose (other) Calcium 8.1 L POC Ioniz Calcium Michelle Ferritin Total Bilirubin 0.3 AST 777 H ALT 170 H Alkaline Phosphatase 54 Total Creatine Kinase 94465 H C-Reactive Protein Total Protein 5.9 L Albumin 3.2 L Globulin 2.7 Albumin/Globulin Ratio 1.2 Lipase Urine Color Urine Appearance Urine pH Ur Specific Star Urine Protein Urine Glucose (UA) Urine Ketones Urine Blood Urine Nitrite Urine Bilirubin Urine Urobilinogen Ur Leukocyte Esterase Urine WBC (Auto) Urine RBC (Auto) U Hyaline Cast (Auto) U Epithel Cells (Auto) Urine Bacteria (Auto) Anaplasma Smear A. phagocytophilum DNA COVID-19 Eval Order COVID-19 PCR CMV IgM Ab CMV IgG Ab/TORCH E. chaffeensis IgG Ab E. chaffeensis IgM Ab E. chaffeensis Interp E. chaffeensis Comment EBV Capsid Ag IgG Ab EBV Capsid Ag IgM Ab EBV EA Restrict+Diffuse EBV Nuclear Antigen Ab EBV Antibody Interp Hepatitis A IgM Ab Hep Bs Antigen Hep B Core IgM Ab Hepatitis C Antibody Monoscreen 04/11/20 04/11/20 04/11/20 16:32 16:32 16:32 WBC RBC Hgb POC Hgb Hct POC Hct MCV MCH MCHC RDW Std Deviation RDW Coeff of Viki Plt Count MPV Immature Gran % (Auto) Neut % (Auto) Lymph % (Auto) Kemper % (Auto) Eos % (Auto) Baso % (Auto) Neut # (Auto) Lymph # (Auto) Kemper # (Auto) Eos # (Auto) Baso # (Auto) Immature Gran # (Auto) APTT PTT Ratio POC Sodium Sodium POC Potassium Potassium POC Chloride Chloride Carbon Dioxide POC Total CO2 Anion Gap POC Anion Gap POC BUN BUN Creatinine POC Creatinine Est Cr Clr Drug Dosing Est GFR ( Amer) Est GFR (Non-Af Amer) BUN/Creatinine Ratio Glucose POC Glucose (other) Calcium POC Ioniz Calcium Michelle Ferritin Total Bilirubin AST ALT Alkaline Phosphatase Total Creatine Kinase C-Reactive Protein < 0.29 Total Protein Albumin Globulin Albumin/Globulin Ratio Lipase Urine Color Urine Appearance Urine pH Ur Specific Star Urine Protein Urine Glucose (UA) Urine Ketones Urine Blood Urine Nitrite Urine Bilirubin Urine Urobilinogen Ur Leukocyte Esterase Urine WBC (Auto) Urine RBC (Auto) U Hyaline Cast (Auto) U Epithel Cells (Auto) Urine Bacteria (Auto) Anaplasma Smear A. phagocytophilum DNA COVID-19 Eval Order COVID-19 PCR CMV IgM Ab Pending CMV IgG Ab/TORCH Pending E. chaffeensis IgG Ab E. chaffeensis IgM Ab E. chaffeensis Interp E. chaffeensis Comment EBV Capsid Ag IgG Ab EBV Capsid Ag IgM Ab EBV EA Restrict+Diffuse EBV Nuclear Antigen Ab EBV Antibody Interp Hepatitis A IgM Ab Hep Bs Antigen Hep B Core IgM Ab Hepatitis C Antibody Monoscreen Negative 04/11/20 04/11/20 04/11/20 16:32 Unknown Unknown WBC RBC Hgb POC Hgb Hct POC Hct MCV MCH MCHC RDW Std Deviation RDW Coeff of Viki Plt Count MPV Immature Gran % (Auto) Neut % (Auto) Lymph % (Auto) Kemper % (Auto) Eos % (Auto) Baso % (Auto) Neut # (Auto) Lymph # (Auto) Kemper # (Auto) Eos # (Auto) Baso # (Auto) Immature Gran # (Auto) APTT PTT Ratio POC Sodium Sodium POC Potassium Potassium POC Chloride Chloride Carbon Dioxide POC Total CO2 Anion Gap POC Anion Gap POC BUN BUN Creatinine POC Creatinine Est Cr Clr Drug Dosing Est GFR ( Amer) Est GFR (Non-Af Amer) BUN/Creatinine Ratio Glucose POC Glucose (other) Calcium POC Ioniz Calcium Michelle Ferritin Total Bilirubin AST ALT Alkaline Phosphatase Total Creatine Kinase C-Reactive Protein Total Protein Albumin Globulin Albumin/Globulin Ratio Lipase Urine Color Yellow Urine Appearance Clear Urine pH 5.5 Ur Specific Star 1.011 Urine Protein Negative Urine Glucose (UA) Negative Urine Ketones Negative Urine Blood 2+ H Urine Nitrite Negative Urine Bilirubin Negative Urine Urobilinogen Negative Ur Leukocyte Esterase Negative Urine WBC (Auto) 0 Urine RBC (Auto) 0-4 U Hyaline Cast (Auto) 0 U Epithel Cells (Auto) 0-5 Urine Bacteria (Auto) Negative Anaplasma Smear A. phagocytophilum DNA COVID-19 Eval Order Covid19 Done at [facility] COVID-19 PCR CMV IgM Ab CMV IgG Ab/TORCH E. chaffeensis IgG Ab E. chaffeensis IgM Ab E. chaffeensis Interp E. chaffeensis Comment EBV Capsid Ag IgG Ab Pending EBV Capsid Ag IgM Ab Pending EBV EA Restrict+Diffuse Pending EBV Nuclear Antigen Ab Pending EBV Antibody Interp Pending Hepatitis A IgM Ab Hep Bs Antigen Hep B Core IgM Ab Hepatitis C Antibody Monoscreen 04/11/20 Unknown WBC RBC Hgb POC Hgb Hct POC Hct MCV MCH MCHC RDW Std Deviation RDW Coeff of Viki Plt Count MPV Immature Gran % (Auto) Neut % (Auto) Lymph % (Auto) Kemper % (Auto) Eos % (Auto) Baso % (Auto) Neut # (Auto) Lymph # (Auto) Kemper # (Auto) Eos # (Auto) Baso # (Auto) Immature Gran # (Auto) APTT PTT Ratio POC Sodium Sodium POC Potassium Potassium POC Chloride Chloride Carbon Dioxide POC Total CO2 Anion Gap POC Anion Gap POC BUN BUN Creatinine POC Creatinine Est Cr Clr Drug Dosing Est GFR ( Amer) Est GFR (Non-Af Amer) BUN/Creatinine Ratio Glucose POC Glucose (other) Calcium POC Ioniz Calcium Michelle Ferritin Total Bilirubin AST ALT Alkaline Phosphatase Total Creatine Kinase C-Reactive Protein Total Protein Albumin Globulin Albumin/Globulin Ratio Lipase Urine Color Urine Appearance Urine pH Ur Specific Star Urine Protein Urine Glucose (UA) Urine Ketones Urine Blood Urine Nitrite Urine Bilirubin Urine Urobilinogen Ur Leukocyte Esterase Urine WBC (Auto) Urine RBC (Auto) U Hyaline Cast (Auto) U Epithel Cells (Auto) Urine Bacteria (Auto) Anaplasma Smear A. phagocytophilum DNA COVID-19 Eval Order COVID-19 PCR NEGATIVE CMV IgM Ab CMV IgG Ab/TORCH E. chaffeensis IgG Ab E. chaffeensis IgM Ab E. chaffeensis Interp E. chaffeensis Comment EBV Capsid Ag IgG Ab EBV Capsid Ag IgM Ab EBV EA Restrict+Diffuse EBV Nuclear Antigen Ab EBV Antibody Interp Hepatitis A IgM Ab Hep Bs Antigen Hep B Core IgM Ab Hepatitis C Antibody Monoscreen PG Care Time/CCT Total # of Minutes Spent Total Time Spent with Patient: Total time spent is greater than 50% in coordination of care (as documented) at patient's floor/unit and/or counseling patient: Coding Level of Care Code 94530 Subseq Hosp Care Lvl 3 Diagnoses Rhabdomyolysis M62.82 Rhabdomyolysis type: non-traumatic Abnormal LFTs R94.5 Family history of hemochromatosis Z83.49 History of Lyme disease Z86.19 Fatigue R53.83 Fatigue type: unspecified (1) Rhabdomyolysis Rhabdomyolysis type: non-traumatic Qualified Code(s): M62.82 - Rhabdomyolysis (2) Fatigue Fatigue type: unspecified Qualified Code(s): R53.83 - Other fatigue
[2020-04-11] MEDS: SODIUM CHLORIDE 0.9% 1000ML 1,000 ML IV SCH (22:29)
[2020-04-12] MEDS: SODIUM CHLORIDE 0.9% 1000ML 1,000 ML IV SCH ×5 (01:38→21:11)
[2020-04-12 05:07] LABS: Hepatitis A Antibody IgM NON-REACTIVE (NON-REACTIVE); Hepatitis B Core Antibody IgM NON-REACTIVE (NON-REACTIVE)
[2020-04-12 08:13] LABS: Basophils # (auto) 0.01 K/uL (0-0.2); Basophils % (auto) 0.2 %; Eosinophils # (auto) 0.12 K/uL (0-0.5); Eosinophils % (auto) 2.2 %; Hematocrit (blood only) 42.6 % (42-52); Immature Granulocytes # (auto) 0.02 K/uL (0.00-0.02); Immature Granulocytes % (auto) 0.4 %; Lymphocytes # (auto) 1.79 K/uL (1.2-3.4); Lymphocytes % (auto) 32.8 %; Mean Corpuscular Hemoglobin 31.3 pg (25-34); Mean Corpuscular Hgb Conc 35.2 g/dL (32-36); Mean Corpuscular Volume 88.9 fL (80-100); Mean Platelet Volume 8.9 fL (7.4-10.4); Monocytes % (auto) 7.3 %; Neutrophils # (auto) 3.12 K/uL (1.4-6.5); Neutrophils % (auto) 57.1 %; Platelet Count 196 K/uL (130-400); RDW Standard Deviation 38.5 fL (36.4-46.3); Red Blood Count 4.79 M/uL (4.7-6.1); White Blood Count 5.46 K/uL (4.8-10.8)
[2020-04-12] MEDS: DOXYCYCLINE HYCLATE 100 MG CAP PO SCH ×2 (08:15→20:25)
[2020-04-12 08:58] LABS: Albumin Level 3.8 gm/dl (3.4-5.0); BUN Creatinine Ratio 14.8 (10-20); Calcium 9.6 mg/dl (8.5-10.1); Creatinine Clr Calc Pharmacy 140.8 ml/min; Est GFR (African American) 133.3
[2020-04-12 09:14] LABS: Albumin Globulin Ratio 1.2 (0.9-2); Bilirubin,Total 0.5 mg/dl (0.2-1); Globulin 3.1 gm/dl (2.5-4.0); Total Protein 6.9 gm/dl (6.4-8.2)
--- NOTE | 2020-04-12 16:04 | Hospitalist Progress Note ---
Date of Service April 12, 2020 Assessment & Plan (1) Rhabdomyolysis: Suspect secondary to heavy workouts with recent break in his exercise regimen due to Lyme disease. CPK > 20,000 therefore increased risk of RAJESH. He is very concerned about potential contributing factors, discussed in great detail: Drugs - pre-workout supplement contains 150 mg caffeine per serving, 1 g creatine both which indicated an increased risk of rhabdo Infections - anaplasmosis/ehrlichiosis tests outstanding - continue on doxycycline pending results of these. We will repeat Lyme antibodies to assess degree of certainty of prior lyme diagnosis as possibly one in the same as current diagnosis although rhabdomyolysis not a complication of lyme disease. Mycoplasma pneumoniae antibodies with a.m. labs - doxycycline will have covered this Autoimmune - negative ESR and CRP makes inflammatory disorders highly unlikely. Endocrine/electrolytes - TSH/glucose/potassium WNL, phosphorus level with a.m. labs Recommend following up with [facility] sports medicine on discharge for advice regarding return to exercise Continue NSS @ 200 ml/hr, repeat CPK daily (2) Abnormal LFTs: Extensive liver work-up including ultrasound, hepatitis panel Patient denies any excessive tylenol or alcohol prior to admission. Pattern appears consistent with rhabdomyolysis and AST increased from skeletal muscle rather than liver. Discussed with Dr Prater - no formal consultation needed. Recommended ceruloplasmin for completeness. Anaplasmosis peripheral smear negative. DNA PCR pending - will continue on doxycycline 100 mg p.o. twice daily Ehrlichiosis antibodies pending EBV/CMV antibodies pending COVID-19 PCR negative (3) Family history of hemochromatosis: see above (4) History of Lyme disease: early stage Lyme dx in January 2020. Will repeat Lyme antibodies to assess likelihood of this diagnosis. treated with 4 weeks of doxycycline. No indication for retreatment. (5) Fatigue: Patient reports several weeks of fatigue leading up to this admission. 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 CBC WNL CRP < 0.29 TSH is normal. 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 If the antibody is positive this could suggest past infection that is contrib uting to fatigue. Await repeat Lyme and other tick-borne tests. extensively updated at bedside; questions answered. Admission and Anticipated Discharge Date Admission Date: April 10, 2020 Anticipated date of discharge: 04/15/20 Subjective Significant improvement with his chest and bilateral lower extremity pain. Currently pain 0/10. Discussed timeline of events again with patient. 01/11 headache, back pain, neck and leg pain. Seen at [facility] acute clinic and improved with NSAIDs, prednisone and muscle relaxers. 01/18 3 large red spots on right leg with ongoing fatigue and myalgias. Lyme IgM testing positive per Western blot. IgG negative. Treated for total of 4 weeks and symptoms improved. Rash resolved. 02/09 seen by PCP with ongoing symptoms attributed to Lyme disease and given additional 1 week doxycycline (due to 4 weeks as above) 04/07 chest workout, less than what he would usually do but most amount of activity he has done since Lyme diagnosis. 04/08 Leg workout 04/09 chest pain and bilateral lower extremity pain started 04/10 video visit with PCP. Increased fatigue. Continued exercising but less strenuous than prior. Sleeping more than usual. CK level elevated so sent to ER. Review of Systems Review of Systems: All systems reviewed & are unremarkable except as noted in HPI & below Physical Exam Constitutional: well developed and well nourished; no acute distress and no altered mental status Eyes: + anicteric sclerae; normal pupil size Neck: trachea midline Respiratory: normal respiratory effort, lungs clear to auscultation Cardiovascular: Rate/Rhythm: regular rate and regular rhythm Heart Sounds: no murmur Extremities: no edema Musculoskeletal: no cyanosis or clubbing, extremities motor strength 5/5 Skin: no rashes, warm and dry Neurologic: moves all extremities and awake; not confused Results & Data Results & Data ([facility]) Vital Signs (Past 12 Hours) Vital Signs Temp Pulse Pulse Resp BP Pulse Ox 04/12/20 15:17 36.5 C 71 18 125/73 96 04/12/20 11:59 36.9 C 71 18 158/83 H 96 04/12/20 08:03 36.7 C 70 18 103/64 98 04/12/20 07:35 70 PG Care Time/CCT Total # of Minutes Spent Total Time Spent with Patient: Total time spent is greater than 50% in coordination of care (as documented) at patient's floor/unit and/or counseling patient: Coding Level of Care Code 22766 Subseq Hosp Care Lvl 2 Diagnoses Rhabdomyolysis M62.82 Rhabdomyolysis type: non-traumatic Abnormal LFTs R94.5 Family history of hemochromatosis Z83.49 History of Lyme disease Z86.19 Fatigue R53.83 Fatigue type: unspecified (1) Fatigue Fatigue type: unspecified Qualified Code(s): R53.83 - Other fatigue (2) Rhabdomyolysis Rhabdomyolysis type: non-traumatic Qualified Code(s): M62.82 - Rhabdomyolysis
[2020-04-13] MEDS: SODIUM CHLORIDE 0.9% 1000ML 1,000 ML IV SCH ×5 (02:11→22:22)
[2020-04-13 07:29] LABS: Basophils # (auto) 0.02 K/uL (0-0.2); Basophils % (auto) 0.4 %; Eosinophils % (auto) 1.8 %; Hematocrit (blood only) 39.3 % (42-52); Hemoglobin 14.2 g/dL (14.0-18.0); Immature Granulocytes # (auto) 0.01 K/uL (0.00-0.02); Immature Granulocytes % (auto) 0.2 %; Lymphocytes # (auto) 1.65 K/uL (1.2-3.4); Lymphocytes % (auto) 30.1 %; Mean Corpuscular Hemoglobin 31.9 pg (25-34); Mean Corpuscular Hgb Conc 36.1 g/dL (32-36); Mean Corpuscular Volume 88.3 fL (80-100); Mean Platelet Volume 8.8 fL (7.4-10.4); Monocytes # (auto) 0.36 K/uL (0.11-0.59); Monocytes % (auto) 6.6 %; Neutrophils # (auto) 3.35 K/uL (1.4-6.5); Neutrophils % (auto) 60.9 %; Platelet Count 175 K/uL (130-400); RDW Coefficient of Variation 11.8 % (11.5-14.5); RDW Standard Deviation 38.2 fL (36.4-46.3); Red Blood Count 4.45 M/uL (4.7-6.1); White Blood Count 5.49 K/uL (4.8-10.8)
[2020-04-13] MEDS: DOXYCYCLINE HYCLATE 100 MG CAP PO SCH ×2 (07:45→21:21)
[2020-04-13 07:53] LABS: Albumin Level 3.3 gm/dl (3.4-5.0); BUN Creatinine Ratio 13.7 (10-20); Calcium 8.9 mg/dl (8.5-10.1); Creatinine Clr Calc Pharmacy 147.4 ml/min; Est GFR (African American) 135.8; Est GFR (Non-African American) 117.2; Potassium 4.1 mmol/L (3.5-5.1)
[2020-04-13 08:53] LABS: Albumin Globulin Ratio 1.1 (0.9-2); Bilirubin,Total 0.4 mg/dl (0.2-1); Phosphorus 3.7 mg/dl (2.5-4.9); Total Protein 6.3 gm/dl (6.4-8.2)
[2020-04-13 10:39] LABS: Lyme Ab IgG w/WB Rflx Positive (Negative); Lyme Ab IgM w/WB Rflx Positive (Negative)
[2020-04-13 12:25] LABS: CoV2 Total Antibody Negative (Negative)
--- NOTE | 2020-04-13 15:55 | Hospitalist Progress Note ---
Date of Service April 13, 2020 Assessment & Plan (1) Rhabdomyolysis: unclear why he had severe elevation in CK with moderate work out has been dealing with muscle weakness, especially in legs, for two months CK was up to 48k, down to 23k today, Cr and electrolytes stable continue fluids at 200mL through this evening, repeat CK level tomorrow he was taking pre-workout supplements with caffeine and creatine, which increase risk of rhabdo related to infection? had Lyme disease in January 2020, was more than adequately treated with Doxy x 4 weeks repeat Lyme screen positive, awaiting titer results anaplasmosis, erlichiosis, mycoplasma all sent will ask ID from [place] to see tomorrow, weigh in on if infection is active, causative ESR and CRP normal, would think this would make autoimmune, inflammatory disorder less likely likely in hospital 1-2 more days would ask PCP to refer him to specialists to look into metabolic disorders, neuromuscular disorder Dr. Tubbs with neurology with EMG testing would likely be appropriate referral as a starting point would suspect [place] would have human services program specialist (McCardle disease?) on discharge would have him refrain from exercise until he sees specialist (2) Abnormal LFTs: Extensive liver work-up including ultrasound, hepatitis panel Patient denies any excessive tylenol or alcohol prior to admission. Pattern appears consistent with rhabdomyolysis and AST increased from skeletal muscle rather than liver. Discussed with Dr Prater - no formal consultation needed. Recommended ceruloplasmin for completeness. Anaplasmosis peripheral smear negative. DNA PCR pending - will continue on doxycycline 100 mg p.o. twice daily Ehrlichiosis antibodies pending EBV/CMV antibodies pending COVID-19 PCR negative AST coming down, ALT minimally elevated (3) Family history of hemochromatosis: see above (4) History of Lyme disease: early stage Lyme dx in January 2020. Will repeat Lyme antibodies to assess likelihood of this diagnosis. treated with 4 weeks of doxycycline. No indication for retreatment. (5) Fatigue: Patient reports several weeks of fatigue leading up to this admission. 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 CBC WNL CRP < 0.29 TSH is normal. 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 If the antibody is positive this could suggest past infection that is contributing to fatigue. Await repeat Lyme and other tick-borne tests. extensively updated over the phone Admission and Anticipated Discharge Date Admission Date: April 10, 2020 Subjective patient feeling better today, no muscle pain reported, still feels weak he is eating and drinking well fluids at 200mL/hr, he is urinating every hour CK down to 23k, AST down to 737, Cr normal and electrolytes stable reviewed chart, would not make sense for him to have CK level of 48k with just normal exercise he did an abbreviated chest work out Tuesday and then ran 3 miles and did some squats Tuesday ever since he had Lyme disease in January he says he has been weak he says he rides a Peloton bike, his output has been significantly lower the past two months he says he does not feel short of breath, it's just that his legs are weak spoke with his over the phone, she is a pharmacist discussed differential for why this happened explained that I don't think we are dealing with active Lyme disease infection suspect either metabolic disorder that was triggered by an infection or neuromuscular disorder would recommend outpatient referrals, she agreed with plan Review of Systems Review of Systems: All systems reviewed & are unremarkable except as noted in Subjective Physical Exam Constitutional: WD/WN, vitals as above Eyes: PERRL, conjunctivae normal, anicteric sclerae ENMT: external ear and nose normal, oropharynx normal Neck: trachea midline, no thyromegaly Respiratory: normal respiratory effort, lungs clear to auscultation Cardiovascular: RRR, no murmur, no edema Gastrointestinal (Abdomen): normal bowel sounds, soft, nontender, no hepatosplenomegaly Musculoskeletal: no cyanosis or clubbing, extremities motor strength 5/5 Skin: no rashes, warm and dry Neurologic: patellar DTR's 2+ bilat, sensation intact and PERRL, EOMI, accommodation nl, no face palsy, no dysarthria Psychiatric: A+Ox3, euthymic affect Lymphatic: no cervical or axillary lymphadenopathy Results & Data Results & Data ([facility]) Vital Signs (Past 12 Hours) Vital Signs Temp Pulse Resp BP BP Pulse Ox 04/13/20 15:33 36.7 C 72 18 120/72 95 04/13/20 07:34 36.5 C 71 18 110/69 95 Laboratory Results Laboratory Results - last 24 hr 04/12/20 04/13/20 04/13/20 07:55 07:16 07:16 WBC 5.49 RBC 4.45 L Hgb 14.2 Hct 39.3 L MCV 88.3 MCH 31.9 MCHC 36.1 H RDW Std Deviation 38.2 RDW Coeff of Viki 11.8 Plt Count 175 MPV 8.8 Immature Gran % (Auto) 0.2 Neut % (Auto) 60.9 Lymph % (Auto) 30.1 [place] % (Auto) 6.6 Eos % (Auto) 1.8 Baso % (Auto) 0.4 Neut # (Auto) 3.35 Lymph # (Auto) 1.65 [place] # (Auto) 0.36 Eos # (Auto) 0.10 Baso # (Auto) 0.02 Immature Gran # (Auto) 0.01 Sodium Potassium Chloride Carbon Dioxide Anion Gap BUN Creatinine Est Cr Clr Drug Dosing Est GFR ( Amer) Est GFR (Non-Af Amer) BUN/Creatinine Ratio Glucose Calcium Phosphorus Total Bilirubin AST ALT Alkaline Phosphatase Total Creatine Kinase Total Protein Albumin Globulin Albumin/Globulin Ratio Ceruloplasmin Lyme Disease IgG Ab Positive A Lyme IgG (Western Blot) Lyme IgG 18 kDa Band Lyme IgG 23 kDa Band Lyme IgG 28 kDa Band Lyme IgG 30 kDa Band Lyme IgG 39 kDa Band Lyme IgG 41 kDa Band Lyme IgG 45 kDa Band Lyme IgG 58 kDa Band Lyme IgG 66 kDa Band Lyme IgG 93 kDa Band Lyme IgM Ab (WB) Lyme Disease IgM Ab Positive A Lyme IgM 23 kDa Band Lyme IgM 39 kDa Band Lyme IgM 41 kDa Band Mycoplasma pneumon IgG Mycoplasma pneumon IgM SARS-CoV-2 IgG & IgM Ab Negative 04/13/20 04/13/20 04/13/20 07:16 07:16 07:16 WBC RBC Hgb Hct MCV MCH MCHC RDW Std Deviation RDW Coeff of Viki Plt Count MPV Immature Gran % (Auto) Neut % (Auto) Lymph % (Auto) [place] % (Auto) Eos % (Auto) Baso % (Auto) Neut # (Auto) Lymph # (Auto) [place] # (Auto) Eos # (Auto) Baso # (Auto) Immature Gran # (Auto) Sodium 141 Potassium 4.1 Chloride 109 H Carbon Dioxide 27 Anion Gap 5.0 BUN 12 Creatinine 0.86 Est Cr Clr Drug Dosing 147.4 Est GFR ( Amer) 135.8 Est GFR (Non-Af Amer) 117.2 BUN/Creatinine Ratio 13.7 Glucose 96 Calcium 8.9 Phosphorus 3.7 Total Bilirubin 0.4 AST 737 H ALT 235 H Alkaline Phosphatase 57 Total Creatine Kinase 97343 H Total Protein 6.3 L Albumin 3.3 L Globulin 3.0 Albumin/Globulin Ratio 1.1 Ceruloplasmin Pending Lyme Disease IgG Ab Lyme IgG (Western Blot) Pending Lyme IgG 18 kDa Band Pending Lyme IgG 23 kDa Band Pending Lyme IgG 28 kDa Band Pending Lyme IgG 30 kDa Band Pending Lyme IgG 39 kDa Band Pending Lyme IgG 41 kDa Band Pending Lyme IgG 45 kDa Band Pending Lyme IgG 58 kDa Band Pending Lyme IgG 66 kDa Band Pending Lyme IgG 93 kDa Band Pending Lyme IgM Ab (WB) Pending Lyme Disease IgM Ab Lyme IgM 23 kDa Band Pending Lyme IgM 39 kDa Band Pending Lyme IgM 41 kDa Band Pending Mycoplasma pneumon IgG Pending Mycoplasma pneumon IgM Pending SARS-CoV-2 IgG & IgM Ab Medications Administered Current Inpatient Medications Al Hydrox/Mg Hydrox/Simethicone (Aluminum/Magnesium Susp 30 Ml Udc) 15 ml PO Q4H PRN PRN Reason: Dyspepsia Stop: 05/11/20 00:26 Doxycycline Hyclate (Doxycycline Hyclate 100 Mg Cap) 100 mg PO BID FATOU Stop: 04/21/20 01:14 Last Admin: 04/13/20 21:21 Dose: 100 mg Documented by: Sodium Chloride (Nss 1000ml) 1,000 mls @ 200 mls/hr IV .Q5H FATOU Stop: 05/11/20 20:59 Last Admin: 04/13/20 22:22 Dose: 200 mls/hr Documented by: Magnesium Hydroxide (Magnesium Hydroxide Susp 30 Ml Udc) 30 ml PO Q12H PRN PRN Reason: Constipation Stop: 05/11/20 00:26 Ondansetron HCl (Ondansetron Inj 2 Mg/Ml 2 Ml Vial) 4 mg IV Q6H PRN PRN Reason: Nausea Stop: 05/11/20 00:26 PG Care Time/CCT Total # of Minutes Spent Total Time Spent: 40 Total Time Spent with Patient: Total time spent is greater than 50% in coordination of care (as documented) at patient's floor/unit and/or counseling patient: Coding Level of Care Code 82488 Subseq Hosp Care Lvl 3 Diagnoses Rhabdomyolysis M62.82 Rhabdomyolysis type: non-traumatic Abnormal LFTs R94.5 Family history of hemochromatosis Z83.49 History of Lyme disease Z86.19 Fatigue R53.83 Fatigue type: unspecified (1) Fatigue Fatigue type: unspecified Qualified Code(s): R53.83 - Other fatigue (2) Rhabdomyolysis Rhabdomyolysis type: non-traumatic Qualified Code(s): M62.82 - Rhabdomyolysis
[2020-04-14] MEDS: SODIUM CHLORIDE 0.9% 1000ML 1,000 ML IV SCH ×5 (03:25→23:23)
[2020-04-14] MEDS: DOXYCYCLINE HYCLATE 100 MG CAP PO SCH ×2 (08:11→21:29)
--- NOTE | 2020-04-14 08:54 | Hospitalist Progress Note ---
Date of Service April 14, 2020 Assessment & Plan (1) Rhabdomyolysis: unclear why he had severe elevation in CK with moderate work out has been dealing with muscle weakness, especially in legs, for two months CK was up to 48k, down to 15k 04/14/20 Cr and electrolytes stable continue fluids at 200mL there have been case reports of lyme myostitis he was taking pre-workout supplements with caffeine and creatine, which increase risk of rhabdo related to infection? had Lyme disease in January 2020, was more than adequately treated with Doxy x 4 weeks repeat Lyme screen positive, awaiting titer results anaplasmosis, erlichiosis, mycoplasma all sent will ask ID from [place] to see tomorrow, weigh in on if infection is active, causative ESR and CRP normal, would think this would make autoimmune, inflammatory disorder less likely on discharge would have him refrain from exercise until he sees specialist (2) Abnormal LFTs: Extensive liver work-up including ultrasound, hepatitis panel Patient denies any excessive tylenol or alcohol prior to admission. Pattern appears consistent with rhabdomyolysis and AST increased from skeletal muscle rather than liver. Discussed with Dr Prater - no formal consultation needed. Recommended ceruloplasmin for completeness. Anaplasmosis peripheral smear negative. DNA PCR pending - will continue on doxycycline 100 mg p.o. twice daily Ehrlichiosis antibodies pending EBV/CMV antibodies pending COVID-19 PCR negative AST coming down, ALT minimally elevated (3) Family history of hemochromatosis: see above (4) History of Lyme disease: early stage Lyme dx in January 2020. Will repeat Lyme antibodies to assess likelihood of this diagnosis. treated with 4 weeks of doxycycline. (5) Fatigue: Patient reports several weeks of fatigue leading up to this admission. 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 If the antibody is positive this could suggest past infection that is contributing to fatigue. Await repeat Lyme and other tick-borne tests. extensively updated over the phone Admission and Anticipated Discharge Date Admission Date: April 10, 2020 Subjective Patient feels much improved he has no particular joint pain is a no darkened urine is confused about the multiple opinions he is received. He relates to me that he felt quite normal up until this December and January issue which occurred with muscular back pain and headaches which we eventually was diagnosed with Lyme disease and improved. I did speak on Review of Systems Review of Systems: Mild distress and fatigue no headache, blurry or double vision no speech or swallowing issues no chest pain, pressure or palpitations no shortness of breath, cough or wheezes no abdominal pain, nausea or vomiting, diarrhea or constipation no dysuria, hematuria or frequency no focal joint pain or swelling no back pain, CVA tenderness or radicular pain no bruising, bleeding or rashes no focal signs of weakness or numbness or altered sensation no complaints of anxiety or depression. Physical Exam Physical Exam: The patient appeared well nourished and normally developed. Vital signs as documented. Head exam is normocephalic atraumatic no scleral icterus Neck is without JVD, thyromegaly, or carotid bruits. Lungs are clear to auscultation, no focal loss of breath sounds Cardiac exam, Rhythm is regular.. No murmurs, rubs or gallops. Abdominal exam reveals normal bowel sounds, soft non tender, no masses Extremities are nonedematous and both pedal pulses are present Neurologic exam is alert and oriented, no focal loss of strength or sensation Skin is without bruises or rashes Psychologically is without concerns for anxiety or depression. Results & Data Results & Data ([facility]) Vital Signs (Past 12 Hours) Vital Signs Temp Pulse Resp BP BP Pulse Ox 04/14/20 07:33 97.9 F 59 L 18 114/71 98 04/13/20 23:07 98.1 F 69 16 108/67 99 PG Care Time/CCT Total # of Minutes Spent Total Time Spent with Patient: Total time spent is greater than 50% in coordination of care (as documented) at patient's floor/unit and/or counseling patient: Coding Level of Care Code 99461 Subseq Hosp Care Lvl 3 Diagnoses Rhabdomyolysis M6.82 Rhabdomyolysis type: non-traumatic Abnormal LFTs R94.5 Family history of hemochromatosis Z83.49 History of Lyme disease Z86.19 Fatigue R53.83 Fatigue type: unspecified (1) Fatigue Fatigue type: unspecified Qualified Code(s): R53.83 - Other fatigue (2) Rhabdomyolysis Rhabdomyolysis type: non-traumatic Qualified Code(s): M62.82 - Rhabdomyolysis
[2020-04-14 09:07] LABS: Albumin Level 3.6 gm/dl (3.4-5.0); BUN Creatinine Ratio 13.8 (10-20); Creatinine Clr Calc Pharmacy 149.1 ml/min; Est GFR (African American) 136.5; Est GFR (Non-African American) 117.7; Potassium 3.8 mmol/L (3.5-5.1)
[2020-04-14 09:31] LABS: Albumin Globulin Ratio 1.2 (0.9-2); Bilirubin,Total 0.5 mg/dl (0.2-1); Globulin 3.1 gm/dl (2.5-4.0); Total Protein 6.7 gm/dl (6.4-8.2)
[2020-04-14 11:42] LABS: EBV Nuclear Ag Antibody >600.00 U/mL
[2020-04-14 14:25] LABS: CMV IgG Antibody <0.60 U/mL; CMV IgM Antibody <30.00 AU/mL
[2020-04-14 16:56] LABS: Ehrlichia chaff IgG Ab <1:64 (<1:64); Ehrlichia chaff IgM Ab <1:20 (<1:20)
[2020-04-15] MEDS: SODIUM CHLORIDE 0.9% 1000ML 1,000 ML IV SCH ×2 (03:58→08:35)
[2020-04-15] MEDS: DOXYCYCLINE HYCLATE 100 MG CAP PO SCH (07:48)
[2020-04-15 08:18] LABS: Albumin Globulin Ratio 1.2 (0.9-2); Albumin Level 3.5 gm/dl (3.4-5.0); BUN Creatinine Ratio 13.7 (10-20); Bilirubin,Total 0.3 mg/dl (0.2-1); Calcium 8.8 mg/dl (8.5-10.1); Creatinine Clr Calc Pharmacy 152.7 ml/min; Est GFR (African American) 137.8; Est GFR (Non-African American) 118.9; Globulin 2.8 gm/dl (2.5-4.0); Potassium 3.9 mmol/L (3.5-5.1); Total Protein 6.3 gm/dl (6.4-8.2)
--- NOTE | 2020-04-15 17:24 | Discharge Summary ---
Date of Service April 15, 2020 Admission HPI Per Admitting Provider The patient is a 29-year-old male who was initially diagnosed with Lyme disease on 02/10/2020, and completed 4 weeks of doxycycline. His symptoms have begun to worsen after a few days period of exercise. Today, when he called his outpatient PCPs office, he was given a follow-up prescription for doxycycline, and advised to follow-up if his symptoms were to worsen, which he has this evening. He denies any recent travels or sick exposures, including to [place]. Laboratories performed earlier in the day, revealed an AST of 584, which tonight is worsened 893, ALT of 123, which time is worse to 188, and total CK of 34,897 which has worsened to 46,036 this evening. Principal Diagnosis Rhabdomyolysis Hepatic transaminitis Lyme disease Discharge Exam The patient appeared well Vital signs as documented. Neurologic exam is alert and oriented, no focal loss of strength or sensation Skin is without bruises or rashes Psychologically is without concerns for anxiety or depression. Discharge Data Allergies Allergy/AdvReac Type Severity Reaction Status Date / Time No Known Allergies Allergy Mild Verified 04/10/20 21:45 Consultations 04/10/20 21:21 ED Decision to Admit Stat 04/11/20 00:27 Consult Case Management - Discharge Planning Routine 04/12/20 11:55 Consult Health Information Management Routine 04/13/20 23:01 Consult Infectious Diseases Routine Ordered Studies 04/11/20 14:30 gallbladder Routine Hospital Course (1) Rhabdomyolysis: Patient feels he has had some muscular pain since early summer when he was initially diagnosed with Lyme disease. In his life prior to this which included fairly rigorous workouts to get into the [employer] he had no issues with significant muscle soreness nor second wind type syndrome where he needed to recover to regain his muscular strength that would be more consistent with an enzymatic deficiency or genetic deficiency. Because this could be a myositis related to a tickborne illness as he did have initial improvement with treatment to continue treating this with doxycycline and have an infectious disease referral. The unknown additive to the situation is the supplements he does take to workout including creatine. His work itself was fairly minimal regarding its vigorousness however the supplements do added unknown wildcard to the max regarding chemical irritation to both his muscles and liver. With aggressive hydration his creatinine kinase had come down from 48,000-5000 on the day of discharge and he is recommended to continue hydration related to infection? had Lyme disease in January 2020, was more than adequately treated with Doxy x 4 weeks repeat Lyme screen positive, awaiting titer results anaplasmosis DNA was not detected, erlichiosis was not detected, mycoplasma all sent He appears to have previous exposure to [place]af[place]-Michel will ask ID from [place] to see as an outpatient ESR and CRP normal, would think this would make autoimmune, inflammatory disorder less likely on discharge would have him refrain from exercise until he sees specialist (2) Abnormal LFTs: Extensive liver work-up including ultrasound, hepatitis panel are negative for outside influences or diagnoses Patient denies any excessive tylenol or alcohol prior to admission. Pattern appears consistent with rhabdomyolysis and AST increased from skeletal muscle rather than liver. Discussed with Dr Prater - no formal consultation needed. Recommended ceruloplasmin for completeness. Anaplasmosis peripheral smear negative. DNA PCR pending - will continue on doxycycline 100 mg p.o. twice daily Ehrlichiosis antibodies negative EBV/CMV antibodies pending Nafisa-Michel was detected but not IgM COVID-19 PCR negative AST coming down, ALT minimally elevated (3) Family history of hemochromatosis: see above (4) History of Lyme disease: early stage Lyme dx in January 2020. Will repeat Lyme antibodies to assess likelihood of this diagnosis. treated with 4 weeks of doxycycline. Continue treatment till infectious disease referral (5) Fatigue: Patient reports several weeks of fatigue leading up to this admission. 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 B12 level normal Negative COVID-19 serum antibody test If the antibody is positive this could suggest past infection that is contributing to fatigue. Total Time Total Time Spent Total Time Spent (In Minutes): It required greater than 30 minutes to prepare this patient for discharge Discharge Plan Discharge Items Patient Disposition: Home - Self-Care Reason For Visit: RHABDO,ABNORMAL LFT'S Discharge Diagnosis: Rhabdomyolysis Lyme disease elevated Liver tests improving Activity: Per Instructions section Activity Comment: no intentional physical exercise for one week Non-emergency contact: Primary Care Provider Call non-emergency contact if: you have any medication questions and your sym ptoms worsen Follow-up/Referrals: Diogenes Mcqueen MD [Primary Care Provider] - Rick Riojas DO [Physician] - 04/22/20 10:00 am ([address] [place] [id number] [phone]) Diet: Regular Addtl Attending Provider Instructions: You presented with elevated muscle enzymes ( Creatinine Kinase) and liver tests, all which have improved. will recommend plenty of hydration this week and repeat blood work at weeks end. Since we are working with the diagnosis of a myositis from a tic borne infection will recommend an additional treatment c ourse of Doxycycline and follow up with your primary care provider. For the time being please do not use any supplements or protein additives, you may use a multivitamin. Pending Studies at Discharge: No Stand-Alone Forms: My [facility], Smoking Cessation Medications and DC Order Prescriptions: Continued doxycycline hyclate 100 mg tablet 100 mg PO BID Qty: 28 RF: 0 Discontinued Protein Shake 1 dose PO UD RF: 0 Discharge Orders: Discharge Order (Routine); Ordered 04/15/20 Ordered By: Matt Enrique Admission Data Admit Date/Time: 04/10/20 23:02 Attending Provider: Matt Enrique Admit Provider: Bijan Jean Primary Care Provider: Diogenes Mcqueen Other Providers: Bijan Jean ; Sreedhar Ledesma ; Blaine Mann ; Donny Hughes I. ; Bart Velarde II ; Carmen Colon ; Avelino Joseph Other Interventions: Discharge Summary Assessment (RN) Last Done: 04/15/20 09:17 Coding Level of Care Code D/C Day Management >30 mins Diagnoses Rhabdomyolysis M62.82 Rhabdomyolysis type: non-traumatic Abnormal LFTs R94.5 Family history of hemochromatosis Z83.49 History of Lyme disease Z86.19 Fatigue R53.83 Fatigue type: unspecified
[2020-04-15 23:25] LABS: 18KDIGG Band NON-REACTIVE; 23KDIGG Band NON-REACTIVE; 23KDIGM Band REACTIVE; 28KDIGG Band NON-REACTIVE; 30KDIGG Band NON-REACTIVE; 39KDIGG Band REACTIVE; 39KDIGM Band NON-REACTIVE; 41KDIGG Band REACTIVE; 41KDIGM Band REACTIVE; 45KDIGG Band NON-REACTIVE; 58KDIGG Band REACTIVE; 66KDIGG Band NON-REACTIVE; 93KDIGG Band REACTIVE; Lyme Antibodies, WB IgG NEGATIVE (NEGATIVE); Lyme Antibodies, WB IgM POSITIVE (NEGATIVE)
[2020-04-17 18:16] LABS: Mycoplasma pneumoniae Ab, IgG 1.75 (<=0.90)
== END 2020-04-15 10:00 | disposition home or self-care (01) | DRG 558 ==
LOC: ED 18:48 → SUATTDRO 23:02 → 2W 23:02